=== PATIENT | male | born 1990 | race Caucasian/White ===

== ENCOUNTER 2016-09-27 15:44 | Emergency (ER) | payer MEDICAID ==
[~2016-09-27] VITALS: Ht 185.4 cm; Wt 63.5 kg
[2016-09-27] MEDS ORDERED: ZYPREXA7.5 MG ORAL (15:46)
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
[2016-09-27 16:25] VITALS: BP 134/83
[2016-09-27 16:28] LABS: BASOPHILS % (AUTO) 0.5 % (0.0-2.0); LYMPHOCYTES % (AUTO) 12.8 % (20.0-45.0); MEAN CORPUSCULAR HGB CONC 33.4 G/DL (32.0-36.0); MEAN CORPUSCULAR VOLUME 93 FL (80-99); MEAN PLATELET VOLUME 7.2 FL (6.5-10.1); MONOCYTES % (AUTO) 5.9 % (1.0-10.0); NEUTROPHILS % (AUTO) 80.9 % (45.0-75.0); PLATELET COUNT 269 K/UL (150-450); RED BLOOD COUNT 5.17 M/UL (4.70-6.10); RED CELL DISTRIBUTION WIDTH 11.6 % (11.6-14.8); WHITE BLOOD COUNT 8.2 K/UL (4.8-10.8)
[2016-09-27 16:45] LABS: ACETAMINOPHEN < 10 ug/mL (10-30); ALANINE AMINOTRANSFERASE 52 U/L (3-41); ALBUMIN/GLOBULIN RATIO 1.5 (1.0-2.7); ALCOHOL < 10 mg/dL; ANION GAP 17 (5-15); ASPARTATE AMINO TRANSFERASE 31 U/L (5-40); CALCIUM 9.9 mg/dL (8.6-10.2); CARBON DIOXIDE 25 mEQ/L (20-30); CHLORIDE 93 mEQ/L (98-107); GLOMERULAR FILTRATION RATE > 60 mL/min (>60); HEMOLYSIS 6; POTASSIUM 3.7 mEQ/L (3.4-4.9); SODIUM 135 mEQ/L (135-145); TOTAL PROTEIN 8.5 g/dL (6.6-8.7)
--- NOTE | 2016-09-27 16:52 | Diagnostic Imaging Report ---
Indication: Abdominal pain Technique: Continuous helical transaxial imaging of the abdomen and pelvis was obtained from the lung bases to the pubic symphysis. No intravenous contrast was administered. Coronal 2-D reformats were also obtained. Total Dose length Product (DLP): [address] Dose Index Volume (CTDIvol): 11 mGy Comparison: none Findings: Lung bases are clear. There is a small hiatal hernia. No nephrolithiasis or hydronephrosis demonstrated. The bladder is unremarkable in appearance. Normal appendix demonstrated. There is no free fluid or free air. There is a moderate amount of distal colonic and rectal stool noted. No evidence of bowel obstruction. The gallbladder is unremarkable. Solid organs are not evaluated well on this exam done without IV contrast material. Impression: No acute findings Mild to moderate stool retention in the distal colon/rectum. Normal appendix No evidence of nephrolithiasis or obstructive nephropathy. Small hiatal hernia The CT scanner at [facility] is accredited by the [employer] and the scans are performed using dose optimization techniques as appropriate to a performed exam including Automatic Exposure control.
[2016-09-27 18:52] VITALS: BP 119/66
[2016-09-27 20:00] VITALS: BP 99/49
[2016-09-27 23:00] VITALS: BP 99/53
[2016-09-28] VITALS (7 sets, daily range): BP systolic 99–112; BP diastolic 51–70
--- NOTE | 2016-09-29 14:47 | Cardiology Report ---
APPROVED REPORT EKG Measurement Heart [id number] Sinus tachycardia Biatrial enlargement Abnormal ECG
== END 2016-09-28 08:59 ==
LOC: EDBD 15:44 → EMR 16:55
DX: R45.851 Suicidal ideations (principal); F29 Unspecified psychosis not due to a substance or known physiological condition; F12.90 Cannabis use, unspecified, uncomplicated; V09.9XXA Pedestrian injured in unspecified transport accident, initial encounter; Y93.9 Activity, unspecified; Y92.411 Interstate highway as the place of occurrence of the external cause
CPT/HCPCS: 36415; 74176; 80053; 80300; 80329; 85025; 93005; 96374